=== PATIENT | female | born 1980 | race Caucasian/White ===

== ENCOUNTER 2017-07-02 19:31 | Emergency (ER) | payer OTHER, MEDICAID ==
[~2017-07-02] VITALS: Ht 157.5 cm; Wt 79.8 kg
[~2017-07-02 19:31] MED LIST: AMOXICILLIN 50500 MG PO; AZITHROMYCIN 2250 MG; AZITHROMYCIN 2250 MG PO; BACTRIM DS TAB1 EACH PO; BENTYL 10 MG CA10 M1 PO; BIRTH CONTROL IMPLAN; CEFDINIR300 MG PO; CIPRO500 MG PO; CIPROFLOXIN HC2.5 M1 OTIC; CORTISPORIN OTI10 M2 OTIC; DOXYCYCLINE 10100 M1 PO; DOXYCYCLINE 10100 MG PO; ERYTHROMYCIN E3.5 G1 OPHTHALMIC; FLAGYL500 MG PO; FLEXERIL PO; GLYBURIDE 2.52.5 MG PO; HYDROCODON-ACE1 EAC7 PO; IBUPROFEN 800800 M1 PO; KEFLEX500 MG PO; MUCINEX TA600 MG/TA2; NAPROSYN375 MG PO; NAPROSYN500 MG PO; NOHOMEMEDICATIONS; NORCO 5-325 TA1 EACH PO; ONDANSETRON HCL4 M2 PO; PERCOCET 5-3251 EACH PO; PROAIR HFA8.5 GM IH; TRAMADOL 50 MG50 MG PO; TRINATE TABLET1 TAB PO; ULTRAM 50MG TAB50 MG PO; UNICOMPLEX M TA1 TA1 PO; VENTOLIN HFA 1818 GM INH; VICODIN 5-5001 EACH PO; ZOFRAN ODT4 MG PO
[2017-07-02 21:09] VITALS: BP 123/70
== END 2017-07-02 21:09 | disposition home or self-care (01) ==
LOC: M.ERS 19:31
DX: S93.504A Unspecified sprain of right lesser toe(s), initial encounter (principal); F17.210 Nicotine dependence, cigarettes, uncomplicated; Z90.49 Acquired absence of other specified parts of digestive tract; Z98.890 Other specified postprocedural states; Z86.14 Personal history of Methicillin resistant Staphylococcus aureus infection; Z88.5 Allergy status to narcotic agent; Z88.0 Allergy status to penicillin; W22.03XA Walked into furniture, initial encounter; Y93.89 Activity, other specified; Y92.89 Other specified places as the place of occurrence of the external cause; Y99.8 Other external cause status

== ENCOUNTER 2019-07-19 15:50 | Emergency (ER) | payer OTHER ==
[~2019-07-19] VITALS: Ht 154.9 cm; Wt 99.8 kg
[2019-07-19 16:30] LABS: INFLUENZA A ANTIGEN Negative (Negative); INFLUENZA B ANTIGEN Negative (Negative)
[2019-07-19] MEDS ORDERED: TESSALON PERLE100 MG PO (16:44)
[2019-07-19] MEDS ORDERED: PROMETHAZI6.25 MG/5 PO (16:44)
[2019-07-19] MEDS ORDERED: PROAIR HFA8.5 GM INH (16:44)
[2019-07-19] MEDS ORDERED: NORCO 5-325 TA1 EAC1 PO (16:59)
[2019-07-19] MEDS ORDERED: ZPAK PO (17:09)
[2019-07-19 17:10] VITALS: BP 117/57
== END 2019-07-19 17:11 | disposition home or self-care (01) ==
LOC: M.ERS 15:50
PROVIDERS: Physician Assistant
DX: J06.9 Acute upper respiratory infection, unspecified (principal); F17.210 Nicotine dependence, cigarettes, uncomplicated; Z88.5 Allergy status to narcotic agent; Z88.0 Allergy status to penicillin; Z98.890 Other specified postprocedural states; Z90.49 Acquired absence of other specified parts of digestive tract; Z98.51 Tubal ligation status; Z86.14 Personal history of Methicillin resistant Staphylococcus aureus infection

== ENCOUNTER 2019-08-09 11:20 | Emergency (ER) | payer OTHER ==
[~2019-08-09] VITALS: Ht 154.9 cm; Wt 94.3 kg
[~2019-08-09 11:20] MED LIST changes: +NORCO 5-325 TA1 EAC1 PO; +PROAIR HFA8.5 GM INH; +PROMETHAZI6.25 MG/5 PO; +TESSALON PERLE100 MG PO; +ZPAK PO
[2019-08-09 12:23] LABS: INFLUENZA A ANTIGEN Negative (Negative); INFLUENZA B ANTIGEN Negative (Negative)
[2019-08-09] MEDS ORDERED: TESSALON PERLE100 MG PO (12:30)
[2019-08-09] MEDS ORDERED: MEDROLDOSEPACK PO (12:38)
[2019-08-09] MEDS ORDERED: NORCO 5-325 TA1 EAC1 PO (12:38)
[2019-08-09] MEDS ORDERED: PROMETHAZINE V120 ML PO (12:38)
[2019-08-09] MEDS ORDERED: ZPAK PO (12:38)
[2019-08-09 12:55] VITALS: BP 131/90
== END 2019-08-09 12:57 | disposition home or self-care (01) ==
LOC: M.ERS 11:20
PROVIDERS: Nurse Practitioner Family
DX: J06.9 Acute upper respiratory infection, unspecified (principal); F17.210 Nicotine dependence, cigarettes, uncomplicated; Z88.5 Allergy status to narcotic agent; Z88.0 Allergy status to penicillin; Z98.51 Tubal ligation status; Z90.49 Acquired absence of other specified parts of digestive tract; Z98.890 Other specified postprocedural states; Z86.14 Personal history of Methicillin resistant Staphylococcus aureus infection

== ENCOUNTER 2019-08-11 18:05 | Emergency (ER) | payer OTHER ==
[~2019-08-11] VITALS: Ht 154.9 cm; Wt 90.7 kg
[~2019-08-11 18:05] MED LIST changes: +MEDROLDOSEPACK PO; +PROMETHAZINE V120 ML PO
[2019-08-11 19:52] VITALS: BP 145/76
== END 2019-08-11 19:53 | disposition home or self-care (01) ==
LOC: M.ERS 18:05
DX: J40 Bronchitis, not specified as acute or chronic (principal); F17.210 Nicotine dependence, cigarettes, uncomplicated; Z88.5 Allergy status to narcotic agent; Z88.0 Allergy status to penicillin; Z90.49 Acquired absence of other specified parts of digestive tract; Z90.89 Acquired absence of other organs; Z98.890 Other specified postprocedural states; Z86.14 Personal history of Methicillin resistant Staphylococcus aureus infection

== ENCOUNTER 2019-12-11 11:22 | Emergency (ER) | payer OTHER ==
[~2019-12-11] VITALS: Ht 154.9 cm; Wt 99.8 kg
[2019-12-11] MEDS ORDERED: TRAMADOL 50 MG50 MG PO (13:04)
[2019-12-11 13:26] VITALS: BP 130/89
== END 2019-12-11 13:27 | disposition home or self-care (01) ==
LOC: M.ERS 11:22
DX: S93.491A Sprain of other ligament of right ankle, initial encounter (principal); M25.561 Pain in right knee; F17.210 Nicotine dependence, cigarettes, uncomplicated; Z88.5 Allergy status to narcotic agent; Z88.0 Allergy status to penicillin; Z90.49 Acquired absence of other specified parts of digestive tract; Z98.890 Other specified postprocedural states; Z98.51 Tubal ligation status; Z86.14 Personal history of Methicillin resistant Staphylococcus aureus infection; X50.1XXA Overexertion from prolonged static or awkward postures, initial encounter; Y93.89 Activity, other specified; Y92.89 Other specified places as the place of occurrence of the external cause; Y99.8 Other external cause status

== ENCOUNTER 2020-09-26 12:41 | Emergency (ER) | payer OTHER ==
[~2020-09-26] VITALS: Ht 154.9 cm; Wt 95.3 kg
[2020-09-26 13:17] LABS: ABSOLUTE BASOPHILS 0.2 thou/uL (0.0-0.2); ABSOLUTE EOSINOPHILS 0.2 thou/uL (0.0-0.7); ABSOLUTE LYMPHOCYTES 2.6 thou/uL (0.8-5.3); ABSOLUTE MONOCYTES 0.7 thou/uL (0.0-1.2); ABSOLUTE NEUTROPHILS 11.7 thou/uL (1.6-8.1); EOSINOPHILS 1.6 %; HEMATOCRIT 49.2 % (37.0-47.0); HEMOGLOBIN 16.7 gm/dL (12.0-15.0); LYMPHOCYTES 16.7 %; MCH 31.8 pg (26.0-34.0); MCV 93.4 fL (80.0-100.0); MONOCYTES 4.8 %; MPV 8.7 fl. (7.2-11.1); NUCLEATED RBCS 0 /100WBC; PLATELET COUNT* 394 thou/uL (150-400); POLYS 75.9 %; RBC 5.26 mil/uL (4.20-5.00); WBC 15.4 thou/uL (4.0-11.0)
[2020-09-26 13:23] LABS: CALCIUM 8.7 mg/dL (8.5-10.1); CREATININE 0.8 mg/dL (0.6-1.3)
[2020-09-26 13:28] LABS: ALBUMIN 3.9 g/dL (3.4-5.0); TOTAL BILIRUBIN 0.5 mg/dL (<0.1-1.0); TOTAL PROTEIN 7.4 g/dL (6.4-8.2)
[2020-09-26] MEDS ORDERED: HYDROCODON-ACE1 EAC7 PO (14:46)
[2020-09-26] MEDS ORDERED: FLAGYL500 M1 PO (14:46)
[2020-09-26] MEDS ORDERED: CIPROFLOXACIN500 M1 PO (14:46)
[2020-09-26] MEDS ORDERED: PREDNISONE 20 M20 M1 PO (14:46)
[2020-09-26 15:10] VITALS: BP 130/82
--- NOTE | 2020-09-26 15:46 | EKG ---
[place] [address] ELECTROCARDIOGRAM REPORT Name: PHILIPPE MARTINEZ Room: [facility]#: [id number] Admission: 09/26/20 Attend Phys: Discharge: 09/26/20 Date of : 76 Date of Service: 09/26/20 1337 Report #: [id number] THIS REPORT FOR: //name// [facility] ED Test Date: 2020-09-26 Test Time: 13:37:08 Pat Name: PHILIPPE MARTINEZ Department: Room: Gender: [employer] V[employer]: KESHAV : 1980 Requested By: Vishnu Smith Order Number: [id number] MD: Odilon Munoz Measurements Intervals [place] Rate: 66 P: 0 AR: 161 QRS: -14 QRSD: 90 T: 3 QT: 388 QTc: 407 Interpretive Statements Sinus rhythm Borderline T wave abnormalities Compared to ECG 04/06/2013 21:45:02 T-wave abnormality now present Sinus arrhythmia no longer present Electronically Signed On 09-26-2020 15:46:40 CDT by Odilon Munoz [email or web address] <ELECTRONICALLY SIGNED> By: Odilon Munoz MD, FAC 09/26/20 1546 1337 1337 Odilon Munoz MD, [facility] /EPI
== END 2020-09-26 15:13 | disposition home or self-care (01) ==
LOC: M.ERS 12:41
PROVIDERS: Family Medicine
DX: R10.11 Right upper quadrant pain (principal); Z20.822 Contact with and (suspected) exposure to COVID-19; R11.10 Vomiting, unspecified; R19.7 Diarrhea, unspecified; Z88.5 Allergy status to narcotic agent; Z88.0 Allergy status to penicillin; Z98.51 Tubal ligation status; Z98.890 Other specified postprocedural states

== ENCOUNTER 2021-05-19 20:01 | Emergency (ER) | payer OTHER, MEDICAID ==
[~2021-05-19] VITALS: Ht 154.9 cm; Wt 93.9 kg
[~2021-05-19 20:01] MED LIST changes: +CIPROFLOXACIN500 M1 PO; +FLAGYL500 M1 PO; +PREDNISONE 20 M20 M1 PO
[2021-05-19] MEDS ORDERED: CENTANY30 GM TOP (20:33)
[2021-05-19] MEDS ORDERED: APAP W/CODEINE1 TA2 PO (20:33)
[2021-05-19] MEDS ORDERED: DOXYCYCLINE 10100 MG PO (20:33)
[2021-05-19 20:59] VITALS: BP 145/78
== END 2021-05-19 20:59 | disposition home or self-care (01) ==
LOC: M.ERS 20:01
DX: S20.102A Unspecified superficial injuries of breast, left breast, initial encounter (principal); F17.210 Nicotine dependence, cigarettes, uncomplicated; Z86.14 Personal history of Methicillin resistant Staphylococcus aureus infection; Z90.49 Acquired absence of other specified parts of digestive tract; Z98.890 Other specified postprocedural states; Z98.51 Tubal ligation status; Z88.6 Allergy status to analgesic agent; Z88.0 Allergy status to penicillin; X58.XXXA Exposure to other specified factors, initial encounter; Y93.89 Activity, other specified; Y92.89 Other specified places as the place of occurrence of the external cause; Y99.8 Other external cause status